=== PATIENT | male | born 1965 | race Two or more races ===

== ENCOUNTER 2016-10-04 13:00 | Emergency (ER) | payer OTHER ==
[~2016-10-04] VITALS: Ht 170.2 cm; Wt 82.6 kg
[2016-10-04 13:02] VITALS: BP 135/90
[2016-10-04] MEDS ORDERED: METFORMIN HCL500 M5 PO (13:11)
[2016-10-04] MEDS ORDERED: Bacitracin Oint UD TOPIC ONE (13:30)
[2016-10-04] MEDS ORDERED: Lidocaine 1% 10mg/ml/Epi 0.005mg/ml 30ml vial INJ ONE (13:30)
--- NOTE | 2016-10-04 14:18 | Emergency Room Report ---
History of Present Illness General Chief Complaint: Head Injury Source: Patient Present Illness HPI 50 YO Male presents to the ED c/o Laceration above the left eyebrow times one day. Patient states he was at work working with metal pipe that fell loose and hit him in the face. Patient denies loss of consciousness. He states he is up- to-date with tetanus denies bleeding at this time. Patient denies dizziness, and balance, headache. Patient denies taking blood thinning medications. denies blurry vision or loss of vision, denies bony facial pain. Denies pain with eye movements. Denies numbness tingling or loss of sensation or gross motor movements of the extremities, incontinence of bowel or bladder. Denies CP , Palpitations, LOC, AMS, dizziness, Changes in Vision, Sensation, paresthesias , or a sudden severe headache. Allergies: Coded Allergies: No Known Allergies (Unverified , 10/04/16) Patient History Past Medical History: see triage record Past Surgical History: none Pertinent Family History: none Immunizations: UTD Reviewed Nursing Documentation: PMH: Agreed, PSxH: Agreed Nursing Documentation-PMH Hx Diabetes: Yes - Pre-diabetes Review of Systems All Other Systems: negative except mentioned in HPI Physical Exam Vital Signs Date Time Temp Pulse Resp B/P Pulse Ox O2 Delivery O2 Flow Rate FiO2 10/04/16 13:02 97.9 84 16 135/90 97 Room Air Sp02 EP Interpretation: reviewed, normal General Appearance: no apparent distress, alert, GCS 15, non-toxic Head: normocephalic, other - 2cm laceration- stellate Eyes: bilateral eye EOMI, bilateral eye PERRL, bilateral eye normal inspection ENT: hearing grossly normal, normal pharynx, no angioedema, normal voice Neck: full range of motion, supple/symm/no masses Respiratory: chest non-tender, lungs clear, normal breath sounds, speaking full sentences Cardiovascular #1: regular rate, rhythm, no edema, normal capillary refill Musculoskeletal: back normal, gait/station normal, normal range of motion, non- tender Neurologic: alert, oriented x3, responsive, 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, motor strength/tone normal, sensory intact, speech normal, no pronator Psychiatric: judgement/insight normal, memory normal, mood/affect normal Skin: normal color, no rash, warm/dry, well hydrated Procedures Laceration/Wound Repair Laceration/Wound Repair : Consent: Verbal Wound Location: face - above left eyebrow Wound's Depth, Shape: superficial, irregular, stellate Wound Length (cm): 2 Wound Explored: clean Irrigated w/ Saline (ccs): 200 Betadine Prep?: Yes Anesthesia: Lidocaine w/ Epi Volume Anesthetic (ccs): 2 Wound Debrided: minimal Wound Repaired With: sutures Suture Size/Type: 5:0 Number of Sutures: 5 Layer Closure?: No Sterile Dressing Applied?: Yes Splint Applied?: No Sling Applied?: No Patient Tolerated: Well Complications: None Medical Decision Making PA Attestation Dr. Ryan is my supervising Physician whom patient management has been discussed with. Diagnostic Impression: Primary Impression: Laceration ER Course Pt. presents to the ED c/o laceration to forehead above the left eyebrow x 1 day. negative KO. Tetanus UTD. Ddx considered but are not limited to laceration, tendon injury, cellulitis, amputation Vital signs: are WNL, pt. is afebrile H&PE are most consistent with: stellate facial laceration above the left eyebrow approx 2 cm in length ORDERS: none required at this time, the diagnosis is clinical ED INTERVENTIONS: - The wound was copiously irrigated with normal saline, and explored for foreign body for which no FB was found. - pt. is anesthetized with 1%lidocaine w. epi. 2 cc's - The wound was approximated and closed using 5 interrupted 6.0 Vycril sutures. -Bacitracin and sterile dressing is applied. Discussed with patient: That we make every effort to approximate the laceration as best as we can so that scarring will be as cosmetically pleasing as possible with our limited cosmetic skill set in the Emergency dept. Regardless of our best efforts there will be scarring after laceration repair. The extent of scarring is unknown at this time. DISCHARGE: At this time pt. is stable for d/c to home. Will provide printed patient care instructions, and any necessary prescriptions. Care plan and follow up instructions have been discussed with the patient prior to discharge. Last Vital Signs Date Time Temp Pulse Resp B/P Pulse Ox O2 Delivery O2 Flow Rate FiO2 10/04/16 13:02 97.9 16 135/90 97 Room Air 10/04/16 13:02 84 Disposition: HOME, SELF-CARE Condition: Stable Scripts Bacitracin/Polymyxin B Sulfate (BACITRACIN-POLYMYXIN OINTMENT) 28.35 Gm Oint...g. 1 APPLIC TP BID, #28.3 GM Prov: Francine Hoover 10/04/16 Referrals: NOT CHOSEN IPA/MD,REFERRING (PCP) Patient Instructions: Laceration Care, Adult, [id number] Additional Instructions: Take medications as directed. Follow up with PCP in 3-5 days Return sooner to ED if new symptoms occur, or current symptoms become worse. - Please note that this Emergency Department Report was dictated using [employer] eye technology software, occasionally this can lead to erroneous entry secondary to interpretation by the dictation equipment. Francine Hoover October 04, 2016 14:18
[2016-10-04] MEDS ORDERED: BACITRACIN-P28.35 GM TP (14:40)
[2016-10-04 14:53] VITALS: BP 128/89
== END 2016-10-04 14:57 | disposition home or self-care (01) ==
LOC: EMR 13:40
DX: S01.112A Laceration without foreign body of left eyelid and periocular area, initial encounter (principal); W22.8XXA Striking against or struck by other objects, initial encounter; Y93.9 Activity, unspecified; Y99.0 Civilian activity done for income or pay; R73.03 Prediabetes